=== PATIENT | female | born 1945 | race Caucasian/White ===

== ENCOUNTER 2017-09-17 20:32 | Inpatient (IN) | payer OTHER ==
[~2017-09-17] VITALS: Ht 160 cm; Wt 71.6 kg
[~2017-09-17 20:32] MED LIST: METOPROLOL; PRILOSEC; SYNTHROID; ZOCOR
[2017-09-17 21:56] LABS: BASOPHIL COUNT 0.1 K/uL (0-0.1); EOSINOPHIL COUNT 0.2 K/uL (0-0.3); HEMATOCRIT 37.3 % (36.0-46.0); IMMATURE GRANULOCYTE (%) 0.4 % (0.0-0.7); LYMPHOCYTE COUNT 2.1 K/uL (1.0-2.8); MCH 30.7 PG (29.0-34.0); MCHC 34.9 G/DL (30.0-36.0); MCV 88.2 FL (83-99); MEAN PLAT.VOLUME 9.2 uM^3 (9.5-12.4); MONOCYTE (%) 8.7 % (3-12); MONOCYTE COUNT 0.7 K/uL (0-0.8); NEUTROPHIL (%) 61.9 % (45-76); PLATELET COUNT 201 K/uL (156-360); RBC DIS.WIDTH-CV 12.4 % (11.8-14.6); RBC DIS.WIDTH-SD 40.1 % (39-53); RED BLOOD COUNT 4.23 M/uL (3.80-5.20); WHITE BLOOD COUNT 8.1 K/uL (4.1-10.2)
[2017-09-17 22:06] LABS: CHLORIDE 104 mEq/L (99-109); POTASSIUM 3.9 mEq/L (3.7-5.4); SODIUM 138 mEq/L (136-147)
[2017-09-17 22:08] LABS: GLUCOSE 107 mg/dL (70-99)
[2017-09-17 22:10] LABS: ANION GAP 8 MEQ/L (2-14); TOTAL BILIRUBIN 0.3 mg/dL (0.0-1.0)
[2017-09-17 22:12] LABS: ALKALINE PHOSPHATASE 86 IU/L (3-129); GFR ESTIMATE (CALCULATED) > 59 mL/min/
[2017-09-17 22:13] LABS: UREA NITROGEN (BUN) 9 mg/dL (9-23)
[2017-09-17 22:15] LABS: LIPASE 31 U/L (1.0-51.0)
[2017-09-17 22:18] LABS: TROP-I INTERPRETATION POSITIVE
[2017-09-17 22:28] LABS: TROPONIN-I 1.32 ng/mL (0.0-0.30)
[2017-09-17 23:13] LABS: PROTHROMBIN TIME 10.9 SEC (10.2-12.9)
[2017-09-17 23:15] LABS: PTT 26.4 SEC (25-37)
[2017-09-18] MEDS ORDERED: TRAZODONE HCL50 MG PO (00:05)
[2017-09-18] MEDS ORDERED: METOPROLOL TART25 MG PO (00:08)
[2017-09-18] MEDS ORDERED: SIMVASTATIN20 MG PO (00:08)
[2017-09-18] MEDS ORDERED: LEVOTHYROXINE75 MCG PO (00:09)
[2017-09-18] MEDS ORDERED: LORAZEPAM0.5 MG PO (00:10)
[2017-09-18] MEDS ORDERED: PRILOSEC20 MG PO (00:11)
[2017-09-18] MEDS ORDERED: LO-DOSE ASPIRIN81 M2 PO (00:13)
[2017-09-18 00:46] VITALS: BP 144/83
[2017-09-18 01:08] LABS: HDL CHOLESTEROL 49 MG/DL (Desirable>=50); LDL CHOLESTEROL 68 mg/dL (Desirable<100); NON-HDL CHOLESTEROL 98 mg/dL (Desirable<160); TOTAL CHOLESTEROL 147 mg/dL (Desirable<200); TRIGLYCERIDES 150 MG/DL (Normal: <150)
[2017-09-18 05:39] VITALS: BP 101/59
[2017-09-18 05:43] LABS: HEMATOCRIT 36.8 % (36.0-46.0); MCH 30.4 PG (29.0-34.0); MCHC 34.5 G/DL (30.0-36.0); MEAN PLAT.VOLUME 9.3 uM^3 (9.5-12.4); PLATELET COUNT 198 K/uL (156-360); RBC DIS.WIDTH-CV 12.6 % (11.8-14.6); RBC DIS.WIDTH-SD 40.7 % (39-53); RED BLOOD COUNT 4.18 M/uL (3.80-5.20); WHITE BLOOD COUNT 8.2 K/uL (4.1-10.2)
[2017-09-18 05:49] LABS: INTER. NORMALIZED RATIO 1.1; PROTHROMBIN TIME 12.1 SEC (10.2-12.9)
[2017-09-18 06:12] LABS: PTT 173.3 SEC (25-37)
[2017-09-18 06:54] LABS: TROP-I INTERPRETATION POSITIVE; TROPONIN-I 0.88 ng/mL (0.0-0.30)
[2017-09-18 07:41] LABS: ANION GAP 19 MEQ/L (2-14); CHLORIDE 110 MEQ/L (99-109); GFR ESTIMATE (CALCULATED) > 59 mL/min/; GLUCOSE 95 mg/dL (70-99); POTASSIUM 4.4 MEQ/L (3.7-5.4); UREA NITROGEN (BUN) 9 mg/dL (9-23)
[2017-09-18 07:47] LABS: SODIUM 148 MEQ/L (136-147)
[2017-09-18 08:00] VITALS: BP 130/60
[2017-09-18 11:54] LABS: TROP-I INTERPRETATION INDETERMINATE; TROPONIN-I 0.35 ng/mL (0.0-0.30)
[2017-09-18 15:30] VITALS: BP 116/66
[2017-09-18 19:45] VITALS: BP 112/68
[2017-09-19 00:13] VITALS: BP 114/61; BP 131/77
[2017-09-19 05:00] VITALS: BP 111/61
[2017-09-19 08:00] VITALS: BP 122/62
[2017-09-19 09:36] LABS: ANION GAP 7 MEQ/L (2-14); CHLORIDE 104 MEQ/L (99-109); GFR ESTIMATE (CALCULATED) > 59 mL/min/; GLUCOSE 116 mg/dL (70-99); POTASSIUM 4.1 MEQ/L (3.7-5.4); SAMPLE HEMOLYSIS CHECK 0; SAMPLE ICTERIC CHECK 0; SAMPLE LIPEMIA CHECK 0; SODIUM 141 MEQ/L (136-147); UREA NITROGEN (BUN) 9 mg/dL (9-23)
== END 2017-09-19 12:50 | disposition home or self-care (01) | DRG 287 ==
LOC: EME → EDBD 20:32 → EME 20:32 → 4EAST 22:53 → EDOF 22:53 → ENRESERV 22:58 → 4EAST 09-18 00:37
PROVIDERS: Emergency Medicine; Hospitalist; Internal Medicine
DX: I51.81 Takotsubo syndrome (principal); E87.0 Hyperosmolality and hypernatremia; I10 Essential (primary) hypertension; E03.9 Hypothyroidism, unspecified; E78.5 Hyperlipidemia, unspecified; G47.00 Insomnia, unspecified; K21.9 Gastro-esophageal reflux disease without esophagitis; I25.2 Old myocardial infarction
CPT/HCPCS: 71020; 80048; 80053; 80061; 83690; 84484; 85025; 85027; 85610; 85730; 93005; 99281; 99284; C1769; C1887; J1644; J2250; J2405; J3010; J7040; S0028